=== PATIENT | female | born 1975 ===

== ENCOUNTER 2017-05-19 08:21 | Outpatient (CLI) | payer BC ==
--- NOTE | 2017-05-19 10:41 | Diagnostic Imaging Report ---
Indications: H/A headache, migraine with oral Technique: 3D [id number] images obtained through the crow of [place]. MIP reconstructions were generated in multiple rotational projections Comparison: None Findings: Bilateral codominant vertebral arteries. Patent nonstenotic bilateral PICA. Patent nonstenotic bilateral proximal superior cerebellar arteries, P1 segments, and proximal posterior cerebral arteries. There is a sizable left posterior communicating artery. No right posterior commuting artery is demonstrated. Patent nonstenotic proximal common arteries. Patent and nonstenotic bilateral A1 segments and proximal anterior cerebral arteries. And anterior communicating artery is demonstrated. Patent bilateral M1 segments and proximal branches. No evidence of significant stenosis or significant vasospasm demonstrated. No evidence of aneurysm or vascular malformation. Impression: Negative for evidence of significant intracranial proximal cerebrovascular insufficiency. No evidence of vasospasm, aneurysm, or other significant abnormality
--- NOTE | 2017-05-19 10:59 | Diagnostic Imaging Report ---
Indication: H/A Technique: sagittal T1 fast spin echo, axial T1 and T2 FLAIR, Cornelius sagittal T2 FLAIR PROPELLER, axial T2 FS PROPELLER, T2* GRE, axial diffusion weighted images, post contrast axial and coronal T1 FLAIR images. ADC and exponential ADC maps generated Comparison: Findings: . No abnormal areas of restricted diffusion to suggest acute infarction. No acute hemorrhage or edema. Punctate T2 hyperintensities are seen scattered throughout the cerebral deep white matter bilaterally. No mass effect nor midline shift. No abnormal contrast enhancement. Normal size ventricles and extra axial CSF spaces. Visualized orbits and sinuses are unremarkable. The vascular flow voids are preserved. Impression: Bilateral deep white matter punctate T2 hyperintensities. These are nonspecific, but can be seen in patients with history of migraines. Other differential possibilities include chronic small vessel ischemic change, demyelinating disease Negative for acute intracranial bleed, mass effect, infarct, or contrast enhancing lesion
--- NOTE | 2017-05-22 15:30 | Electroencephalogram ---
DATE OF PROCEDURE: 05/19/2017 ELECTROENCEPHALOGRAPHY REPORT REQUESTING PHYSICIAN: Mnaasa Barragan M.D. HISTORY: This 42-year-old female with episodes of disorientation, unknown etiology. EEG was requested to assess possible ongoing seizure activities. No anticonvulsants or sedation given prior to the study. TECHNIQUE: EEG was done using 18 electrodes placed scalp to scalp, scalp to ear montages according to 10/20 International System. During recording, the patient described as awake with good cooperation, normal mentality. Most wakeful portions of recording, background activity consist of well regulated 9-10 cycles per second alpha activities often sinusoidal fashion symmetric and well reactive to stimulation. Photic stimulation from 3 to 32 hertz was done, there is no significant changes. Hyperventilation was obtained resulted in generalized slowing with no paroxysmal event. Short episodes of attenuation of background consists of corresponding to sleep stages. No asymmetry from side to side. There were no spike or wave activities noted. IMPRESSION: Normal awake stage 1 sleep electroencephalogram with hyperventilation and photic stimulation. COMMENT: Absence of paroxysmal event on a single recording does not rule out seizure disorder. Demetris Martinez M.D. DR: JESSICA JOB#: [id number] CC:
== END 2017-05-19 10:21 | disposition home or self-care (01) ==
LOC: MRI 08:21
DX: G43.119 Migraine with aura, intractable, without status migrainosus (principal)
CPT/HCPCS: 70544; 70553; 95819; A9585